=== PATIENT | male | born 1975 ===

== ENCOUNTER 2021-08-15 12:19 | Emergency (ER) | payer BC, OTHER ==
[~2021-08-15] VITALS: Ht 172.7 cm; Wt 90.7 kg
[2021-08-15 13:19] VITALS: BP 129/84
[2021-08-15] MEDS ORDERED: LIDOCAINE 1% HCL (LOCAL ANESTH.) INJ 20ML MDV ONE (15:27)
[2021-08-15] MEDS ORDERED: AZIT500T66 PO (15:28)
[2021-08-15] MEDS ORDERED: ONDA-144 PO (15:28)
[2021-08-15] MEDS ORDERED: CHL25C PO (15:30)
[2021-08-15] MEDS ORDERED: cefTRIAXone SOD 1,000 MG VL IM ONE (15:30)
[2021-08-15] MEDS ORDERED: ONDANSETRON ODT 4 MG TAB PO ONE (15:30)
[2021-08-15] MEDS ORDERED: HYDR50CA PO (15:33)
== END 2021-08-15 15:41 | disposition home or self-care (01) ==
LOC: ER 12:19
DX: J03.90 Acute tonsillitis, unspecified (principal); F10.230 Alcohol dependence with withdrawal, uncomplicated; J45.909 Unspecified asthma, uncomplicated; I10 Essential (primary) hypertension; E78.5 Hyperlipidemia, unspecified; Z20.822 Contact with and (suspected) exposure to COVID-19
CPT/HCPCS: 36415; 87426; 96372; 99283; J0696; J2001; Q0162